=== PATIENT | female | born 1965 | race Caucasian/White ===

== ENCOUNTER → 2016-09-08 09:11 | Outpatient (CLI) | payer BC ==
[2011-02-08 12:56] VITALS: BMI 29.9
== END | disposition home or self-care (01) ==
LOC: D.MRI 09:11
DX: M25.511 Pain in right shoulder (principal)

== ENCOUNTER → 2017-11-14 10:29 | Outpatient (CLI) | payer BC ==
[2011-02-08 12:56] VITALS: BMI 29.9
== END | disposition home or self-care (01) ==
LOC: D.MAMMO 10-18 15:00
DX: Z12.31 Encounter for screening mammogram for malignant neoplasm of breast (principal)

== ENCOUNTER → 2017-12-19 08:00 | Outpatient (CLI) | payer BC ==
[2011-02-08 12:56] VITALS: BMI 29.9
== END | disposition home or self-care (01) ==
LOC: D.MRI 08:00
DX: M25.562 Pain in left knee (principal)

== ENCOUNTER → 2018-02-21 18:13 | Outpatient (CLI) | payer BC ==
[2011-02-08 12:56] VITALS: BMI 29.9
== END | disposition home or self-care (01) ==
LOC: D.MRI 18:13
DX: M25.561 Pain in right knee (principal)

== ENCOUNTER → 2018-07-24 13:31 | Outpatient (CLI) | payer BC ==
[2011-02-08 12:56] VITALS: BMI 29.9
[~2018-07-24 13:31] MED LIST: AMBIEN10 MG PO; ATIVAN1 MG PO; CYMBALTA60 MG PO; HYDROCODON-ACE1 EA10 PO; PRINIVIL20 MG PO; TOPROL XL50 MG PO; VITAMIN E100 UNIT PO; WELCHOL625 MG PO; ZYRTEC10 MG PO; [UNRECOGNIZED DRUG - OTHER] PO
== END | disposition home or self-care (01) ==
LOC: D.LABREF 13:31
DX: M17.11 Unilateral primary osteoarthritis, right knee (principal); Z11.8 Encounter for screening for other infectious and parasitic diseases

== ENCOUNTER 2018-08-02 09:15 | Inpatient (IN) | payer BC ==
[~2018-08-02] VITALS: Ht 167.6 cm; Wt 90.9 kg
[2018-08-11] MEDS ORDERED: TOPROL XL50 MG PO (15:06)
[2018-08-11] MEDS ORDERED: ATIVAN1 MG PO (15:07)
[2018-08-11] MEDS ORDERED: CYMBALTA60 MG PO (15:07)
[2018-08-11] MEDS ORDERED: AMBIEN10 MG PO (15:07)
[2018-08-11] MEDS ORDERED: PRINIVIL20 MG PO (15:07)
[2018-08-11] MEDS ORDERED: WELCHOL625 MG PO (15:08)
[2018-08-11] MEDS ORDERED: HYDROCODON-ACE1 EA10 PO (15:09)
[2018-08-14] MEDS ORDERED: ZYRTEC10 MG PO (10:10)
[2018-08-14] MEDS ORDERED: [UNRECOGNIZED DRUG - OTHER] PO (10:11)
[2018-08-14] MEDS ORDERED: VITAMIN E100 UNIT PO (10:11)
[2018-08-14 10:54] LABS: BASOPHILS 0.6 % (0-2); EOSINOPHILS 1.5 % (0-7); IMMATURE GRANULOCYTES 0.4 % (0-5); LYMPHOCYTES 31.9 % (15-50); MCH 29.8 pg (26.0-34.0); MCHC 33.3 g/dL (31.0-37.0); MCV 89.4 fL (80.0-100.0); MEAN PLATELET VOLUME 8.5 fL (7.4-10.4); MONOCYTES 9.7 % (2-11); NEUTROPHILS 55.9 % (40-80); PLATELET COUNT 324 10x3/uL (130-400); RBC 4.36 10x6/uL (4.00-5.40); RDW 12.7 % (11.5-14.5); WBC 5.2 10x3/uL (4.8-10.8)
[2018-08-14 11:01] LABS: CALC OSMOLALITY 276 mosm/kg (275-300); CALCIUM 9.4 mg/dL (8.5-10.1); CHLORIDE - SERUM 100 mmol/L (98-107); CREATININE - SERUM 0.7 mg/dL (0.6-1.3); GLUCOSE 93 mg/dL (74-106); POTASSIUM - SERUM 3.5 mmol/L (3.5-5.1); SODIUM 139 mmol/L (136-145); UREA NITROGEN 10 mg/dL (7-18); eGFR NON AFRICAN AMERICAN > 90 mL/min (90-120)
[2018-08-14 11:31] LABS: APTT 28.6 SECONDS (22.8-39.4); INR 0.96 (0.85-1.17); PROTIME 12.3 SECONDS (11.6-15.0)
[2018-08-14 11:37] LABS: APPEARANCE CLEAR (CLEAR); BILIRUBIN NEGATIVE (NEGATIVE); COLOR STRAW (YELLOW); GLUCOSE NEGATIVE (NEGATIVE); KETONE NEGATIVE (NEGATIVE); NITRITE NEGATIVE (NEGATIVE); PROTEIN NEGATIVE (NEGATIVE); SPECIFIC GRAVITY 1.005 (1.005-1.020); UROBILINOGEN NORMAL (NORMAL)
[2018-08-14 11:39] LABS: EPITHELIAL CELLS 0-5 /hpf (0-5); RED CELLS - URINE 0-5 /hpf (0-5); WHITE CELLS - URINE 0-5 /hpf (0-5)
[2018-08-14 11:40] LABS: AMORPHOUS SEDIMENT <1+ /lpf (NONE SEEN); BACTERIA FEW /hpf (NONE SEEN); MUCUS <1+ /lpf (NONE SEEN)
[2018-08-18] VITALS (7 sets, daily range): BP systolic 126–144; BP diastolic 75–84; Ht 167.6 cm; Wt 90.9 kg
--- NOTE | 2018-08-18 13:37 | OP ---
PATIENT NAME: PEGGY SHAY MEDICAL RECORD: [id number] :67 LOCATION:D.MS [id number] ADMISSION DATE:08/18/18 SURGEON: STEVEN GIBSON DO DATE OF OPERATION: 08/18/2018 PREOPERATIVE DIAGNOSIS: Right total knee arthroplasty. PREOPERATIVE DIAGNOSIS: Severe right knee osteoarthritis. POSTOPERATIVE DIAGNOSIS: Severe right knee osteoarthritis. INDICATIONS: Ms. Shay is a 53-year-old female that has been having right knee pain for some time years even. She has tried all manner of conservative treatment including injections and physical therapy and she is to a point where it is affecting her activities of daily living. She does have a known ACL tear as well in that right knee and is unstable. Due to that combination and the fact she has failed all conservative measures, she elected to do a total knee arthroplasty. She is aware of the risks and benefits of the procedure including infection, bleeding, damage to nerves and vessels, need for further surgery, fracture, blood clots, and even . She is aware of that and signed the consent. SURGEON: Steven Gibson DO DESCRIPTION OF PROCEDURE: The patient was taken to the operative suite after receiving a block by anesthesia, laid in the supine position, given general anesthetic and LMA was placed. She was given 2 grams of Ancef after a test dose, which had no reaction due to PENICILLIN ALLERGY and 80 mg of gentamicin. The right lower extremity was then prepped and draped in sterile fashion. A timeout was performed, everyone was in agreement with the correct side, site, patient and procedure. Once that was completed, the incision was marked out on the anterior knee. Incision was wrapped in Ioban and a #10 blade scalpel was used to dissect down to the capsule. Capsule was peeled off medially and good exposure and then a fresh 10 blade was used to do a medial parapatellar approach to the capsulotomy and any bleeders were coagulated at that time with the Aquamantys. Once that was completed, the part of the fat pad was removed and the patella was everted and milled down to fit the prosthesis and measured to be a 31 for the patella. The knee was then flexed up and the canal of the femur was entered with a drill and then irrigated and the distal femur cutting guide was put on and the distal femur was cut. Once the distal femur was cut, a 10-mm resected with 5 degrees of valgus. This was removed and then the tibia was exposed and 4 mm taken off the low side of the medial side. This bone was removed as well and then the menisci were removed. The knee was brought into extension and a lamina teacher of the deaf/hard of hearing was used to remove any other bone fragments or menisci that were left and medial and lateral burns as well as the posterior capsule was coagulated with the Aquamantys. Extension block was then put in. It fit very well and had good medial and lateral stability. The knee was flexed up at that time and the femur was measured to be just 6.25 for right femur. The cutting block was then put on and the john wing was put on to ensure there was no notching and it was not. This was pinned into place and the 4-in-1 cutting block was used to cut the femur, anterior, posterior and chamfer cuts. This bone was removed and then the trial was placed. The tibial tray was floated in a range and rotation was marked. Once rotation was marked, this was removed. The patella was drilled for the implant. The poly tray had been removed as well as the tibial tray and then the knee was flexed up and the femur was drilled for OPERATIVE REPORT [id number] PEGGY SHAY the lug holes. This was removed and the tibia was exposed and sized to be 71. It was drilled and punched at that time and then extra holes were put in the tibia for the cement mantle. The cement was then mixed, placed on the tibial implant as well as the patellar implant and then into the tibia and the tibial tray was impacted into place. Excess cement was removed. The femur was then put on and impacted into place. A 10 poly was put in between them and brought into extension and then the patella drill holes were cleaned out with a curette and irrigated and the patella was put in with cement in the holes and around the patella and squeezed and excess cement was removed. This was held in place while the cement dried and the knee was thoroughly irrigated at that time. Any bleeders were coagulated with Aquamantys. Once this was done, the 10 was trialed and seemed to fit very well, ended up putting a 10 deep dish or anterior stabilized E-poly in the patient and it had very good stability both in extension and in flexion. The knee was then irrigated again and Surgicel beads were placed in the gutters as well as tobramycin and vancomycin powder. The knee was then flexed up and the capsule was closed with #2 Ethibond in a ecxqir-yp-uglks fashion. Once that was completed, the capsule was irrigated and more vancomycin, tobramycin powder was placed on top of the capsule and the skin was closed with 2-0 Vicryl in inverted interrupted fashion and a ZipLine was placed on the knee. Adaptic, 4 x 4's, ABD, Webril, Zack wrap and then NATALIE hose stockinette was placed up to the knee. The patient was awakened and taken to recovery in stable condition. BLOOD LOSS: 200 mL. COMPLICATIONS: None. TRANSINT:[id number] Voice Confirmation ID: [id number] DOCUMENT ID: [id number] STEVEN GIBSON DO at 1337 CC: [id number] DICTATION DATE: 08/18/18 1147 PUPPET ENGINEER: 08/18/18 1253 ADM IN [place] [address] [place] [address]
[2018-08-18 15:24] LABS: BASOPHILS 0.2 % (0-2); EOSINOPHILS 0 % (0-7); HEMATOCRIT 37.3 % (36.0-48.0); HEMOGLOBIN 12.4 g/dL (12-16); IMMATURE GRANULOCYTES 0.6 % (0-5); MCHC 33.2 g/dL (31.0-37.0); MCV 90.1 fL (80.0-100.0); MEAN PLATELET VOLUME 8.4 fL (7.4-10.4); MONOCYTES 1.1 % (2-11); NEUTROPHILS 94.1 % (40-80); PLATELET COUNT 343 10x3/uL (130-400); RBC 4.14 10x6/uL (4.00-5.40); RDW 12.9 % (11.5-14.5)
--- NOTE | 2018-08-18 15:28 | MORECARE ---
CASE MANAGEMENT DISCHARGE SUMMARY PATIENT: PEGGY BUCHANAN UNIT: [id number] ADM DATE: 08/18/18 AGE: 53 : 67 SEX: F ROOM/BED: D.2213 AUTHOR: TRESSA MITCHELL PHYSICIAN: REFERRING PHYSICIAN: ANITA GIBSON DO DATE OF SERVICE: 08/18/18 Discharge Plan Patient Name: PEGGY BUCHANAN Facility: [facility]:[place] : 1965 Planned Disposition: Home Anticipated Discharge Date: Discharge Date: Expected LOS: Initial Reviewer: [email or web address] Initial Review Date: 08/18/2018 Generated: 08/18/18 4:28 pm DCPIA - Discharge Planning Initial Assessment Updated by [email or web address]: Malini Darnell on 08/18/18 3:27 pm * Is the patient Alert and Oriented? Yes * How many steps to enter\exit or inside your home? * [facility] * Pharmacy [facility] * Preadmission Environment Home with Family * ADLs Independent * Equipment Bedside Commode Elevated Toliet Seat Rolling Walker Shower Chair Walker * Other Equipment CPM ICE MACHINE * List name and contact numbers for known caregivers / representatives who currently or will assist patient after discharge: BRENDA CANCHOLA [phone] * Verbal permission to speak to the caregivers and representatives has been obtained from the patient. Yes * Community resources currently utilized None * Additional services required to return to the preadmission environment? Yes * Can the patient safely return to the preadmission environment? Yes * Has this patient been hospitalized within the prior 30 days at any hospital? No External Providers External Provider: Ashley PT Next Contact Date: Service Request Date: Service Type: Resolution: Reviewer: Comments: Patient Name: PEGGY BUCHANAN Page 37047 at 1528 All edits/amendments must be made on the electronic document DICTATION DATE: 08/18/181526 BENEFITS CONSULTING ANALYST: BILL 08/18/18 152 RPT#: [id number] DC DATE: STATUS: ADM IN [facility] [address] [place] [address] END OF REPORT
--- NOTE | 2018-08-18 15:38 | MORECARE ---
CASE MANAGEMENT DISCHARGE SUMMARY PATIENT: PEGGY BUCHANAN UNIT: [id number] ADM DATE: 08/18/18 AGE: 53 : 67 SEX: F ROOM/BED: D.2213 AUTHOR: TRESSA MITCHELL PHYSICIAN: REFERRING PHYSICIAN: ANITA GIBSON DO DATE OF SERVICE: 08/18/18 Discharge Plan Patient Name: PEGGY BUCHANAN Facility: [facility]:[place] : 1965 Planned Disposition: Home Anticipated Discharge Date: Discharge Date: Expected LOS: Initial Reviewer: [email or web address] Initial Review Date: 08/18/2018 Generated: 08/18/18 4:37 pm Comments DCP- Discharge Planning Updated by [email or web address]: Malini Darnell on 08/18/18 2:[address] Patient Name: PEGGY BUCHANAN Admission Status: Elective Accout number: [id number] Admission Date: 08-18-2018 : 1965 Admission Diagnosis: Attending: ANITA GIBSON Current LOS: 1 Anticipated DC Date: Planned Disposition: Home Primary Insurance: [employer] [facility] Discharge Planning Comments: CM met with discharge planning needs. Patient lives independently at home with her she plans to return there at [place]. Her will be the one to drive her home. She has 2 steps in her porch. She has a walker, cpm, ice machine and BSC already that was set up by Dr Gibson's office. She would like to use [facility]. I spoke with Rebekah at [facility] and made her appointment for TuesdayAug 22 @ 9:00am. Order faxed and copy placed in chart. CM will continue to follow and assist with DC planning as needed Bias Binding Cutter: Malini Darnell DCPIA - Discharge Planning Initial Assessment Updated by [email or web address]: Malini Darnell on 08/18/18 3:27 pm * Is the patient Alert and Oriented? Yes * How many steps to enter\exit or inside your home? * [facility]CP [facility] * Pharmacy [facility] * Preadmission Environment Home with Family * ADLs Independent * Equipment Bedside Commode Elevated Tol[place] Seat Rolling Walker Shower Chair Walker * Other Equipment CPM ICE MACHINE * List name and contact numbers for known caregivers / representatives who currently or will assist patient after discharge: BRENDA CANCHOLA [phone] * Verbal permission to speak to the caregivers and representatives has been obtained from the patient. Yes * Community resources currently utilized None * Additional services required to return to the preadmission environment? Yes * Can the patient safely return to the preadmission environment? Yes * Has this patient been hospitalized within the prior 30 days at any hospital? No Last DP export: 08/18/18 2:28 pm Patient Name: PEGGY BUCHANAN Page 31156 at 1538 All edits/amendments must be made on the electronic document DICTATION DATE: 08/18/181536 CHIP MUCKER: BILL 08/18/181536 RPT#: [id number] DC DATE: STATUS: ADM IN [facility] [address] [place] [address] END OF REPORT
[2018-08-18 15:39] LABS: ALBUMIN 3.5 g/dL (3.4-5.0); BILIRUBIN - TOTAL 0.22 mg/dL (0.2-1.3); CALCIUM 8.7 mg/dL (8.5-10.1); CARBON DIOXIDE 26.1 mmol/L (21.0-32.0); CREATININE - SERUM 0.9 mg/dL (0.6-1.3); POTASSIUM - SERUM 4.1 mmol/L (3.5-5.1); PROTEIN - SERUM 7.2 g/dL (6.4-8.2)
[2018-08-19 04:00] VITALS: BP 118/69
[2018-08-19 06:19] LABS: BASOPHILS 0 % (0-2); EOSINOPHILS 0 % (0-7); HEMATOCRIT 37.3 % (36.0-48.0); HEMOGLOBIN 12.1 g/dL (12-16); IMMATURE GRANULOCYTES 0.4 % (0-5); LYMPHOCYTES 6.2 % (15-50); MCH 29.3 pg (26.0-34.0); MCHC 32.4 g/dL (31.0-37.0); MCV 90.3 fL (80.0-100.0); MEAN PLATELET VOLUME 8.6 fL (7.4-10.4); MONOCYTES 5.5 % (2-11); NEUTROPHILS 87.9 % (40-80); PLATELET COUNT 376 10x3/uL (130-400); RBC 4.13 10x6/uL (4.00-5.40); WBC 12.8 10x3/uL (4.8-10.8)
[2018-08-19 06:58] LABS: ALBUMIN 3.4 g/dL (3.4-5.0); ALKALINE PHOSPHATASE 64 U/L (46-116); ALT (SGPT) 38 U/L (10-68); CALC OSMOLALITY 279 mosm/kg (275-300); CALCIUM 8.9 mg/dL (8.5-10.1); CARBON DIOXIDE 24.5 mmol/L (21.0-32.0); CHLORIDE - SERUM 104 mmol/L (98-107); CREATININE - SERUM 0.8 mg/dL (0.6-1.3); GLUCOSE 142 mg/dL (74-106); POTASSIUM - SERUM 4.3 mmol/L (3.5-5.1); PROTEIN - SERUM 7.1 g/dL (6.4-8.2); SODIUM 140 mmol/L (136-145); UREA NITROGEN 10 mg/dL (7-18); eGFR NON AFRICAN AMERICAN 80 mL/min (90-120)
[2018-08-19 08:39] VITALS: BP 129/83
[2018-08-19 12:00] VITALS: BP 117/72
[2018-08-19 16:00] VITALS: BP 112/64
[2018-08-19 20:00] VITALS: BP 112/64
[2018-08-20] VITALS: BP 106/61
[2018-08-20 04:00] VITALS: BP 108/62
[2018-08-20 05:54] LABS: BASOPHILS 0.1 % (0-2); EOSINOPHILS 0 % (0-7); HEMATOCRIT 34.4 % (36.0-48.0); IMMATURE GRANULOCYTES 0.3 % (0-5); LYMPHOCYTES 15.9 % (15-50); MCH 29.3 pg (26.0-34.0); MCV 91.5 fL (80.0-100.0); MEAN PLATELET VOLUME 8.8 fL (7.4-10.4); NEUTROPHILS 74.7 % (40-80); PLATELET COUNT 343 10x3/uL (130-400); RBC 3.76 10x6/uL (4.00-5.40); RDW 13.4 % (11.5-14.5); WBC 11.7 10x3/uL (4.8-10.8)
[2018-08-20 06:36] LABS: ALBUMIN 3.1 g/dL (3.4-5.0); ALKALINE PHOSPHATASE 68 U/L (46-116); ALT (SGPT) 34 U/L (10-68); BILIRUBIN - TOTAL 0.24 mg/dL (0.2-1.3); CALC OSMOLALITY 282 mosm/kg (275-300); CALCIUM 8.7 mg/dL (8.5-10.1); CARBON DIOXIDE 27.5 mmol/L (21.0-32.0); CHLORIDE - SERUM 104 mmol/L (98-107); CREATININE - SERUM 0.8 mg/dL (0.6-1.3); GLUCOSE 114 mg/dL (74-106); POTASSIUM - SERUM 4.1 mmol/L (3.5-5.1); PROTEIN - SERUM 6.8 g/dL (6.4-8.2); SODIUM 141 mmol/L (136-145); eGFR NON AFRICAN AMERICAN 80 mL/min (90-120)
[2018-08-20 06:37] LABS: UREA NITROGEN 16 mg/dL (7-18)
[2018-08-20 07:55] VITALS: BP 163/80
[2018-08-20 13:00] VITALS: BP 129/76
[2018-08-20 16:00] VITALS: BP 99/57
[2018-08-20 20:00] VITALS: BP 109/54
[2018-08-21] VITALS: BP 102/55
[2018-08-21 04:00] VITALS: BP 116/71
[2018-08-21 04:48] LABS: BASOPHILS 0.6 % (0-2); EOSINOPHILS 0.4 % (0-7); HEMOGLOBIN 10.2 g/dL (12-16); IMMATURE GRANULOCYTES 1.1 % (0-5); LYMPHOCYTES 31.3 % (15-50); MCH 29.1 pg (26.0-34.0); MCHC 31.9 g/dL (31.0-37.0); MCV 91.4 fL (80.0-100.0); MEAN PLATELET VOLUME 8.8 fL (7.4-10.4); MONOCYTES 11.7 % (2-11); NEUTROPHILS 54.9 % (40-80); PLATELET COUNT 311 10x3/uL (130-400); RDW 13.5 % (11.5-14.5)
[2018-08-21 04:54] LABS: WBC 7.9 10x3/uL (4.8-10.8)
[2018-08-21 05:08] LABS: ALBUMIN 2.7 g/dL (3.4-5.0); ALKALINE PHOSPHATASE 75 U/L (46-116); ALT (SGPT) 30 U/L (10-68); BILIRUBIN - TOTAL 0.15 mg/dL (0.2-1.3); CALC OSMOLALITY 281 mosm/kg (275-300); CALCIUM 8.5 mg/dL (8.5-10.1); CARBON DIOXIDE 29.3 mmol/L (21.0-32.0); CHLORIDE - SERUM 107 mmol/L (98-107); CREATININE - SERUM 0.7 mg/dL (0.6-1.3); GLUCOSE 99 mg/dL (74-106); POTASSIUM - SERUM 3.9 mmol/L (3.5-5.1); SODIUM 141 mmol/L (136-145); UREA NITROGEN 16 mg/dL (7-18); eGFR NON AFRICAN AMERICAN > 90 mL/min (90-120)
[2018-08-21] MEDS ORDERED: ELIQUIS2.5 MG PO (07:35)
[2018-08-21] MEDS ORDERED: VISTARIL50 MG PO (07:35)
[2018-08-21] MEDS ORDERED: KEFLEX500 MG PO (07:36)
[2018-08-21] MEDS ORDERED: OXYCODONE HCL5 M1 PO (07:36)
[2018-08-21 08:04] VITALS: BP 125/59
--- NOTE | 2018-08-21 09:58 | MORECARE ---
CASE MANAGEMENT DISCHARGE SUMMARY PATIENT: PEGGY BUCHANAN UNIT: [id number] ADM DATE: 08/18/18 AGE: 53 : 67 SEX: F ROOM/BED: D.2213 AUTHOR: TRESSA MITCHELL PHYSICIAN: REFERRING PHYSICIAN: ANITA GIBSON DO DATE OF SERVICE: 08/21/18 Discharge Plan Patient Name: PEGGY BUCHANAN Facility: [facility]:[place] : 1965 Planned Disposition: Home Anticipated Discharge Date: Discharge Date: Expected LOS: Initial Reviewer: [email or web address] Initial Review Date: 08/18/2018 Generated: 08/21/18 10:58 am Comments DCP- Discharge Planning Updated by [email or web address]: Malini Darnell on 08/21/18 8:[address] Patient Name: PEGGY BUCHANAN Encounter No: [id number] : 1965 Primary Insurance: [employer] Anticipated DC Date: Planned Disposition: Home External Planned Provider: : DCP follow-up note: Patient and family in agreement with discharge plan. No changes to plan. Case management will follow and assist as needed. Malini Darnell DCP- Discharge Planning Updated by [email or web address]: Malini Darnell on 08/18/18 2:[address] Patient Name: PEGGY BUCHANAN Admission Status: Elective Accout number: [id number] Admission Date: 08-18-2018 : 1965 Admission Diagnosis: Attending: ANITA GIBSON Current LOS: 1 Anticipated DC Date: Planned Disposition: Home Primary Insurance: [employer] Discharge Planning Comments: CM met with discharge planning needs. Patient lives independently at home with her she plans to return there at [place]. Her will be the one to drive her home. She has 2 steps in her porch. She has a walker, cpm, ice machine and BSC already that was set up by Dr Gibson's office. She would like to use [facility]. I spoke with Rebekah at [facility] and made her appointment for TuesdayAug 22 @ 9:00am. Order faxed and copy placed in chart. CM will continue to follow and assist with DC planning as needed Cane Feeder: Malini Darnell DCPIA - Discharge Planning Initial Assessment Updated by [email or web address]: Malini Darnell on 08/18/18 3:27 pm * Is the patient Alert and Oriented? Yes * How many steps to enter\exit or inside your home? * [facility] * Pharmacy [facility] * Preadmission Environment Home with Family * ADLs Independent * Equipment Bedside Commode Elevated Toliet Seat Rolling Walker Shower Chair Walker * Other Equipment CPM ICE MACHINE * List name and contact numbers for known caregivers / representatives who currently or will assist patient after discharge: BRENDA CANCHOLA [phone] * Verbal permission to speak to the caregivers and representatives has been obtained from the patient. Yes * Community resources currently utilized None * Additional services required to return to the preadmission environment? Yes * Can the patient safely return to the preadmission environment? Yes * Has this patient been hospitalized within the prior 30 days at any hospital? No Last DP export: 08/18/18 2:38 pm Patient Name: PEGGY BUCHANAN Page 23691 at 0958 All edits/amendments must be made on the electronic document DICTATION DATE: 08/21/18957 FOOT GATHERER: BILL 08/21/18957 RPT#: [id number] DC DATE: STATUS: ADM IN [facility] [address] [place] [address] END OF REPORT
--- NOTE | 2018-08-21 11:21 | MORECARE ---
CASE MANAGEMENT DISCHARGE SUMMARY PATIENT: PEGGY BUCHANAN UNIT: [id number] ADM DATE: 08/18/18 AGE: 53 : 67 SEX: F ROOM/BED: D.2213 AUTHOR: TRESSA MITCHELL PHYSICIAN: REFERRING PHYSICIAN: ANITA GIBSON DO DATE OF SERVICE: 08/21/18 Discharge Plan Patient Name: PEGGY BUCHANAN Facility: [facility]:[place] : 1965 Planned Disposition: Home Anticipated Discharge Date: Discharge Date: 08/21/2018 Expected LOS: 0 Initial Reviewer: [email or web address] Initial Review Date: 08/18/2018 Generated: 08/21/18 12:21 pm Comments DCP- Discharge Planning Updated by [email or web address]: Malini Darnell on 08/21/18 8:[address] Patient Name: PEGGY BUCHANAN Encounter No: [id number] : 1965 Primary Insurance: [employer] Anticipated DC Date: Planned Disposition: Home External Planned Provider: : DCP follow-up note: Patient and family in agreement with discharge plan. No changes to plan. Case management will follow and assist as needed. Malini Darnell DCP- Discharge Planning Updated by [email or web address]: Malini Darnell on 08/18/18 2:[address] Patient Name: PEGGY BUCHANAN Admission Status: Elective Accout number: [id number] Admission Date: 08-18-2018 : 1965 Admission Diagnosis: Attending: ANITA GIBSON Current LOS: 1 Anticipated DC Date: Planned Disposition: Home Primary Insurance: [employer] Discharge Planning Comments: CM met with discharge planning needs. Patient lives independently at home with her she plans to return there at [place]. Her will be the one to drive her home. She has 2 steps in her porch. She has a walker, cpm, ice machine and BSC already that was set up by Dr Gibson's office. She would like to use [facility]. I spoke with Rebekah at [facility] and made her appointment for TuesdayAug 22 @ 9:00am. Order faxed and copy placed in chart. CM will continue to follow and assist with DC planning as needed Railroad Detective: Malini Darnell DCPIA - Discharge Planning Initial Assessment Updated by [email or web address]: Malini Darnell on 08/18/18 3:27 pm * Is the patient Alert and Oriented? Yes * How many steps to enter\exit or inside your home? * PCP [facility] * Pharmacy [facility] * Preadmission Environment Home with Family * ADLs Independent * Equipment Bedside Commode Elevated Toliet Seat Rolling Walker Shower Chair Walker * Other Equipment CPM ICE MACHINE * List name and contact numbers for known caregivers / representatives who currently or will assist patient after discharge: BRENDA CANCHOLA [phone] * Verbal permission to speak to the caregivers and representatives has been obtained from the patient. Yes * Community resources currently utilized None * Additional services required to return to the preadmission environment? Yes * Can the patient safely return to the preadmission environment? Yes * Has this patient been hospitalized within the prior 30 days at any hospital? No Last DP export: 08/21/18 8:58 a Patient Name: PEGGY BUCHANAN Page 91991 at 1121 All edits/amendments must be made on the electronic document DICTATION DATE: 08/21/18 112 INTELLIGENCE ENGINEER: BILL 08/21/181120 RPT#: [id number] DC DATE:08/21/18 STATUS: DIS IN [facility] [address] [place] [address] END OF REPORT
[2018-08-22] MEDS ORDERED: XOFLUZA40 MG PO (10:20)
== END 2018-08-21 10:48 | disposition home or self-care (01) | DRG 470 ==
LOC: D.SDCHOLD 08-18 06:50 → D.MS 08-18 12:19 → D.SDCHOLD 08-18 12:30 → D.MS 08-21 10:48
PROVIDERS: Family Medicine; ADMIT Orthopaedic Surgery
PROC: 0SRC0J9 Replacement of Right Knee Joint with Synthetic Substitute, Cemented, Open Approach (ICD-10-PCS; principal; 2018-08-18 09:00)
DX: M17.11 Unilateral primary osteoarthritis, right knee (principal); D62 Acute posthemorrhagic anemia; I10 Essential (primary) hypertension; I49.9 Cardiac arrhythmia, unspecified; G47.00 Insomnia, unspecified; M54.9 Dorsalgia, unspecified; G89.29 Other chronic pain

== ENCOUNTER 2018-08-22 08:29 | Emergency (ER) | payer BC ==
[~2018-08-22] VITALS: Ht 167.6 cm; Wt 90.9 kg
[~2018-08-22 08:29] MED LIST changes: +ELIQUIS2.5 MG PO; +KEFLEX500 MG PO; +OXYCODONE HCL5 M1 PO; +VISTARIL50 MG PO
[2018-08-22 08:30] VITALS: Ht 167.6 cm; Wt 90.9 kg
[2018-08-22 09:29] LABS: APTT 29.8 SECONDS (22.8-39.4); INR 1.12 (0.85-1.17); PROTIME 13.9 SECONDS (11.6-15.0)
[2018-08-22 09:35] LABS: ALBUMIN 3.1 g/dL (3.4-5.0); ALKALINE PHOSPHATASE 88 U/L (46-116); BILIRUBIN - TOTAL 0.57 mg/dL (0.2-1.3); CALC OSMOLALITY 270 mosm/kg (275-300); CALCIUM 8.7 mg/dL (8.5-10.1); CARBON DIOXIDE 26.8 mmol/L (21.0-32.0); CHLORIDE - SERUM 98 mmol/L (98-107); GLUCOSE 99 mg/dL (74-106); PROTEIN - SERUM 6.7 g/dL (6.4-8.2); SODIUM 135 mmol/L (136-145); UREA NITROGEN 14 mg/dL (7-18)
[2018-08-22 09:38] LABS: ALT (SGPT) 46 U/L (10-68); CREATININE - SERUM 0.9 mg/dL (0.6-1.3); POTASSIUM - SERUM 3.3 mmol/L (3.5-5.1); eGFR NON AFRICAN AMERICAN 70 mL/min (90-120)
[2018-08-22 09:53] LABS: BASOPHILS 0.4 % (0-2); CREATINE KINASE 69 UL (21-215); EOSINOPHILS 0.4 % (0-7); HEMATOCRIT 32.7 % (36.0-48.0); IMMATURE GRANULOCYTES 1.9 % (0-5); LYMPHOCYTES 8.2 % (15-50); MCH 29.6 pg (26.0-34.0); MCHC 33.6 g/dL (31.0-37.0); MEAN PLATELET VOLUME 8.5 fL (7.4-10.4); NEUTROPHILS 80.1 % (40-80); PLATELET COUNT 303 10x3/uL (130-400); RBC 3.71 10x6/uL (4.00-5.40); RDW 12.9 % (11.5-14.5); TROPONIN-I < 0.017 ng/mL (0.000-0.060); WBC 8.4 10x3/uL (4.8-10.8)
[2018-08-22 09:58] LABS: MCV 88.1 fL (80.0-100.0)
[2018-08-22] MEDS ORDERED: XOFLUZA40 MG PO (10:20)
[2018-08-22 11:00] VITALS: BP 121/74
== END 2018-08-22 11:00 | disposition home or self-care (01) ==
LOC: D.ER 08:29
PROVIDERS: Family Medicine
DX: J09.X2 Influenza due to identified novel influenza A virus with other respiratory manifestations (principal); R53.81 Other malaise; R53.83 Other fatigue; R50.9 Fever, unspecified; I10 Essential (primary) hypertension

== ENCOUNTER → 2018-12-28 14:18 | Outpatient (CLI) | payer BC ==
[2018-08-22 08:30] VITALS: BMI 32.3
[~2018-12-28 14:18] MED LIST changes: +XOFLUZA40 MG PO
== END | disposition home or self-care (01) ==
LOC: D.LABREF 14:18
PROVIDERS: ATTEND Orthopaedic Surgery
DX: M17.12 Unilateral primary osteoarthritis, left knee (principal); Z11.8 Encounter for screening for other infectious and parasitic diseases

== ENCOUNTER 2019-01-10 09:52 | Inpatient (IN) | payer BC ==
[~2019-01-10] VITALS: Ht 167.6 cm; Wt 90.9 kg
[2019-02-12 09:43] LABS: BASOPHILS 1.3 % (0-2); CALC OSMOLALITY 276 mosm/kg (275-300); CALCIUM 9.5 mg/dL (8.5-10.1); CARBON DIOXIDE 28.6 mmol/L (21.0-32.0); CHLORIDE - SERUM 103 mmol/L (98-107); CREATININE - SERUM 0.8 mg/dL (0.6-1.3); EOSINOPHILS 3.6 % (0-7); GLUCOSE 102 mg/dL (74-106); HEMATOCRIT 38.5 % (36.0-48.0); HEMOGLOBIN 12.8 g/dL (12-16); IMMATURE GRANULOCYTES 0.3 % (0-5); LYMPHOCYTES 29.7 % (15-50); MCH 29.3 pg (26.0-34.0); MCHC 33.2 g/dL (31.0-37.0); MCV 88.1 fL (80.0-100.0); MEAN PLATELET VOLUME 8.7 fL (7.4-10.4); MONOCYTES 13.3 % (2-11); NEUTROPHILS 51.8 % (40-80); PLATELET COUNT 338 10x3/uL (130-400); POTASSIUM - SERUM 3.9 mmol/L (3.5-5.1); RBC 4.37 10x6/uL (4.00-5.40); RDW 14.1 % (11.5-14.5); SODIUM 139 mmol/L (136-145); UREA NITROGEN 11 mg/dL (7-18); WBC 3.8 10x3/uL (4.8-10.8); eGFR NON AFRICAN AMERICAN 80 mL/min (90-120)
[2019-02-12 10:17] LABS: APPEARANCE CLEAR (CLEAR); COLOR YELLOW (YELLOW)
[2019-02-12 10:18] LABS: BACTERIA FEW /hpf (NONE SEEN); BILIRUBIN NEGATIVE (NEGATIVE); EPITHELIAL CELLS 0-5 /hpf (0-5); GLUCOSE NEGATIVE (NEGATIVE); KETONE NEGATIVE (NEGATIVE); MUCUS <1+ /lpf (NONE SEEN); NITRITE NEGATIVE (NEGATIVE); PROTEIN NEGATIVE (NEGATIVE); UROBILINOGEN NORMAL (NORMAL); WHITE CELLS - URINE 0-5 /hpf (0-5)
[2019-02-12 10:20] LABS: PROTIME 12.7 SECONDS (11.6-15.0)
[2019-02-12 10:22] LABS: INR 0.96 (0.85-1.17)
[2019-02-13 06:17] VITALS: BP 125/77; BMI 32.3
--- NOTE | 2019-02-13 07:41 | NUR ---
PLASMA BLADE SETTINGS 6 AND 8 ELECTRODE PADE RIGHT HIP LOT# [id number] DATE: 07/26/20
[2019-02-13 09:42] VITALS: BP 131/48
--- NOTE | 2019-02-13 09:46 | NUR ---
STARTED PT ON 3L O2 PER NC. O2 SAT KEPT DROPPING, WHEN SHE WOULD DOZE OFF. WILL MONITOR AND TAPER TOLERATED.
[2019-02-13 10:06] LABS: BASOPHILS 0.4 % (0-2); EOSINOPHILS 0.6 % (0-7); HEMATOCRIT 34.6 % (36.0-48.0); HEMOGLOBIN 11.3 g/dL (12-16); IMMATURE GRANULOCYTES 0.4 % (0-5); LYMPHOCYTES 7.8 % (15-50); MCH 28.7 pg (26.0-34.0); MCHC 32.7 g/dL (31.0-37.0); MCV 87.8 fL (80.0-100.0); MEAN PLATELET VOLUME 8.3 fL (7.4-10.4); MONOCYTES 4.4 % (2-11); NEUTROPHILS 86.4 % (40-80); RBC 3.94 10x6/uL (4.00-5.40); RDW 13.9 % (11.5-14.5)
[2019-02-13 10:13] LABS: PLATELET COUNT 264 10x3/uL (130-400); WBC 8.5 10x3/uL (4.8-10.8)
[2019-02-13 10:21] LABS: ALBUMIN 3.5 g/dL (3.4-5.0); ANION GAP 6.4 mmol/L (8-16); BILIRUBIN - TOTAL 0.25 mg/dL (0.2-1.3); CARBON DIOXIDE 28.6 mmol/L (21.0-32.0); CREATININE - SERUM 0.9 mg/dL (0.6-1.3); PROTEIN - SERUM 6.7 g/dL (6.4-8.2)
[2019-02-13 11:54] VITALS: BP 109/61
[2019-02-13 15:34] VITALS: Ht 167.6 cm; Wt 90.9 kg
[2019-02-13 15:45] VITALS: BP 91/47
--- NOTE | 2019-02-13 19:40 | NUR ---
LYING IN BED. ALERT AND ORIENTED X4. RESP EVEN AND NONLABORED. O2 @ 2L/NC. AT BEDSIDE. RATES PAIN IN LT KNEE 4. CPM ON AT THIS TIME. SCD NOTED TO RLE. NTAALIE TO LLE. DRSG NOTED TO LT KNEE IS C/D/I WITH LETICIA WRAP IN USE. 1/2 NS @ 100 ML/HR INFUSING IN RT FOREARM WITHOUT DIFF. SR ELEVATED X2. CL IN REACH.
[2019-02-13 20:00] VITALS: BP 104/50
--- NOTE | 2019-02-13 21:10 | NUR ---
REQUESTED PAIN MED. B/P IS 104/50. MEDICATED WITH TORADOL ORDERED. TOPROL XL AND ATIVAN HELD PER NURSING JUDGEMENT AND PT AGREED. CL IN REACH.
[2019-02-14] VITALS: BP 93/53
--- NOTE | 2019-02-14 03:21 | NUR ---
HAS RESTED WELL SO FAR THIS SHIFT. NO DISTRESS. CL IN REACH.
[2019-02-14 05:07] LABS: BASOPHILS 0.1 % (0-2); EOSINOPHILS 0 % (0-7); HEMATOCRIT 33.8 % (36.0-48.0); HEMOGLOBIN 11.2 g/dL (12-16); IMMATURE GRANULOCYTES 0.2 % (0-5); LYMPHOCYTES 5.8 % (15-50); MCH 29.1 pg (26.0-34.0); MCHC 33.1 g/dL (31.0-37.0); MCV 87.8 fL (80.0-100.0); MEAN PLATELET VOLUME 8.9 fL (7.4-10.4); MONOCYTES 5.9 % (2-11); RBC 3.85 10x6/uL (4.00-5.40); RDW 14.1 % (11.5-14.5)
--- NOTE | 2019-02-14 05:20 | NUR ---
MEDICATED WITH TORADOL FOR C/O PAIN IN LT KNEE. CL IN REACH.
[2019-02-14 05:46] LABS: PLATELET COUNT 321 10x3/uL (130-400); WBC 12.5 10x3/uL (4.8-10.8)
[2019-02-14 05:55] LABS: ALBUMIN 3.3 g/dL (3.4-5.0); ALKALINE PHOSPHATASE 72 U/L (46-116); ALT (SGPT) 33 U/L (10-68); BILIRUBIN - TOTAL 0.27 mg/dL (0.2-1.3); CALC OSMOLALITY 280 mosm/kg (275-300); CALCIUM 8.8 mg/dL (8.5-10.1); CARBON DIOXIDE 25.7 mmol/L (21.0-32.0); CHLORIDE - SERUM 106 mmol/L (98-107); CREATININE - SERUM 0.8 mg/dL (0.6-1.3); GLUCOSE 120 mg/dL (74-106); PROTEIN - SERUM 6.8 g/dL (6.4-8.2); SODIUM 141 mmol/L (136-145); UREA NITROGEN 9 mg/dL (7-18); eGFR NON AFRICAN AMERICAN 80 mL/min (90-120)
[2019-02-14 06:24] LABS: POTASSIUM - SERUM 3.9 mmol/L (3.5-5.1)
--- NOTE | 2019-02-14 08:08 | NUR ---
PT RESTING IN BED. ON CPM. ASSISTED ON BEDPAN. AT BEDSIDE. NO S/S OF ACUTE DISTRESS. CL IN PLACE.
[2019-02-14 09:20] VITALS: BP 108/55
[2019-02-14 12:24] VITALS: BP 106/55
[2019-02-14 18:46] VITALS: BP 124/69
--- NOTE | 2019-02-14 19:00 | NUR ---
PT RESTING IN BED ON CPM. NO S/S OF ACUTE DISTRESS. CL IN PLACE.
--- NOTE | 2019-02-14 20:00 | NUR ---
RCVD PT. PT IN BED WATCHING TV, AT THE BEDSIDE. BREATHING EVEN AND NONLABORED, NO S/S OF DISTRESS. PT CURRENTLY ON CPM. DENIES ANY NEEDS AT THIS TIME. IV LOCATED TO RIGHT FOREARM, SALINE LOCKED. BED LOW, CALL LIGHT IN REACH, RAILS UP X 2. WILL CONTINUE TO MONITOR.
[2019-02-14 22:19] VITALS: BP 109/61
--- NOTE | 2019-02-15 01:00 | NUR ---
PT UP TO TOILET, URINE SAMPLE COLLECTED AND TAKEN TO LAB. DENIES ANY NEEDS AT THIS TIME. BED LOW, CALL LIGHT IN REACH, RAILS UP X 2. WILL CONTINUE TO MONITOR.
[2019-02-15 02:17] LABS: APPEARANCE CLEAR (CLEAR); BILIRUBIN NEGATIVE (NEGATIVE); COLOR YELLOW (YELLOW); GLUCOSE NEGATIVE (NEGATIVE); KETONE NEGATIVE (NEGATIVE); NITRITE NEGATIVE (NEGATIVE); PROTEIN NEGATIVE (NEGATIVE); SPECIFIC GRAVITY 1.005 (1.005-1.020); UROBILINOGEN NORMAL (NORMAL)
[2019-02-15 05:04] VITALS: BP 110/70
[2019-02-15 05:15] LABS: BASOPHILS 0.3 % (0-2); EOSINOPHILS 0.4 % (0-7); HEMATOCRIT 30.1 % (36.0-48.0); HEMOGLOBIN 9.8 g/dL (12-16); IMMATURE GRANULOCYTES 0.3 % (0-5); LYMPHOCYTES 16.3 % (15-50); MCH 28.7 pg (26.0-34.0); MCHC 32.6 g/dL (31.0-37.0); MONOCYTES 11.7 % (2-11); PLATELET COUNT 284 10x3/uL (130-400); RBC 3.42 10x6/uL (4.00-5.40); RDW 14.4 % (11.5-14.5)
[2019-02-15 05:20] LABS: WBC 7.8 10x3/uL (4.8-10.8)
[2019-02-15 05:33] LABS: ALBUMIN 2.9 g/dL (3.4-5.0); ANION GAP 10.6 mmol/L (8-16); BILIRUBIN - TOTAL 0.2 mg/dL (0.2-1.3); CALCIUM 8.6 mg/dL (8.5-10.1); CARBON DIOXIDE 28.6 mmol/L (21.0-32.0); CREATININE - SERUM 0.9 mg/dL (0.6-1.3); POTASSIUM - SERUM 4.2 mmol/L (3.5-5.1); PROTEIN - SERUM 5.9 g/dL (6.4-8.2)
--- NOTE | 2019-02-15 07:49 | NUR ---
ALERT AND ORIENTED. LUNGS CLEAR BILATERALLY IN ALL GARCIA. HEART SOUNDS S1 AND S2 HEARD IN ALL GARCIA. BOWEL SOUNDS ACTIVE X 4. LETICIA WRAP TO LEFT KNEE. CPM ON. SKIN INTACT WITHOUT REDNESS. IV TO RFA SL PATENT WITHOUT REDNESS. DENIES PAIN. DENIES NEEDS. BED LOW. FALL PRECAUTIONS IN PLACE. CALL CHAHAL AND PERSONAL ITEMS IN REACH. WILL CONTINUE TO MONITOR.
[2019-02-15] MEDS ORDERED: LOW DOSE ASPIRI81 M1 PO (08:27)
[2019-02-15] MEDS ORDERED: KEFLEX500 MG PO (08:27)
[2019-02-15] MEDS ORDERED: VISTARIL50 MG PO (08:27)
[2019-02-15] MEDS ORDERED: OXYCODONE HCL5 M1 PO (08:27)
[2019-02-15 09:37] VITALS: BP 122/65
--- NOTE | 2019-02-15 10:19 | NUR ---
DRSG TO LEFT KNEE CHANGED PER ORDER. EXTRA DRSGS AND LETICIA WRAP PROVIDED TO PATIETN BY DR GIBSON. STATES DOES NOT NEED ANYTHING ELSE. WILL DISCHARGE WHEN PAPERWORK READY.
--- NOTE | 2019-02-15 11:26 | NUR ---
SITTING IN CHAIR AT BEDSIDE. DENIES PAIN. DENIES NEEDS. WILL CONTINUE TO MONITOR.
--- NOTE | 2019-02-15 12:16 | MORECARE ---
CASE MANAGEMENT DISCHARGE SUMMARY PATIENT: PEGGY BUCHANAN UNIT: [id number] ADM DATE: 02/13/19 AGE: 53 : 67 SEX: F ROOM/BED: D.2211 AUTHOR: TRESSA MITCHELL PHYSICIAN: REFERRING PHYSICIAN: ANITA GIBSON DO DATE OF SERVICE: 02/15/19 Discharge Plan Patient Name: PEGGY BUCHANAN Facility: [facility]:[place] : 1965 Planned Disposition: Home or Self Care Anticipated Discharge Date: Discharge Date: Expected LOS: Initial Reviewer: [email or web address] Initial Review Date: 02/13/2019 Generated: 02/15/19 1:15 pm DCPIA - Discharge Planning Initial Assessment Updated by [email or web address]: Malini Darnell on 02/15/19 12:14 pm * Is the patient Alert and Oriented? Yes * How many steps to enter\exit or inside your home? * PCP [facility] * Pharmacy [facility] * Preadmission Environment Home with Family * ADLs Independent * Equipment Bedside Commode Shower Chair Walker * Other Equipment CPM ICE MACHINE * List name and contact numbers for known caregivers / representatives who currently or will assist patient after discharge: DANNY BUCHANAN [phone] * Verbal permission to speak to the caregivers and representatives has been obtained from the patient. N/A * Community resources currently utilized None * Additional services required to return to the preadmission environment? Yes * Can the patient safely return to the preadmission environment? Yes * Has this patient been hospitalized within the prior 30 days at any hospital? No External Providers External Provider: [facility] PT Next Contact Date: Service Request Date: Service Type: Resolution: Reviewer: Comments: Patient Name: PEGGY BUCHANAN Page 05955 at 1216 All edits/amendments must be made on the electronic document DICTATION DATE: 02/15/19 1215 BIG DATA SOFTWARE ENGINEER: BILL 02/15/19 1215 RPT#: [id number] DC DATE: STATUS: ADM IN [place] [id number] [place] [id number] END OF REPORT
--- NOTE | 2019-02-15 12:22 | NUR ---
DISCHARGE EDUCATION PROVIDED BOTH WRITTEN AND VERBAL. VERBALIZED UNDERSTANDING. DENIES FURTHER QUESTIONS. REQUESTED AND GIVEN PRN OXYCODONE PRIOR TO DISCHARGE. DENIES FURTHER NEEDS. IV REMOVED FROM RFA WITH TIP INTACT. PATIENT DISCHARGED HOME WITH WITH ALL BELONGINGS.
--- NOTE | 2019-02-15 12:22 | MORECARE ---
CASE MANAGEMENT DISCHARGE SUMMARY PATIENT: PEGGY BUCHANAN UNIT: [id number] ADM DATE: 02/13/19 AGE: 53 : 67 SEX: F ROOM/BED: D.2211 AUTHOR: TRESSA MITCHELL PHYSICIAN: REFERRING PHYSICIAN: ANITA GIBSON DO DATE OF SERVICE: 02/15/19 Discharge Plan Patient Name: PEGGY BUCHANAN Facility: [facility]:[place] : 1965 Planned Disposition: Home or Self Care Anticipated Discharge Date: Discharge Date: Expected LOS: Initial Reviewer: [id number] Initial Review Date: 02/13/2019 Generated: 02/15/19 1:22 pm Comments DCP- Discharge Planning Updated by [email or web address]: Malini Darnell on 02/15/19 11:[address] Patient Name: PEGGY BUCHANAN Admission Status: Elective Accout number: [id number] Admission Date: 02-13-2019 : 1965 Admission Diagnosis:UNILATERAL PRIMARY OSTEOARTHRITIS, LEFT Attending: ANITA GIBSON Current LOS: 2 Anticipated DC Date: Planned Disposition: Home or Self Care Primary Insurance: [employer] [facility] Discharge Planning Comments: CM met with patient to complete initial dc planning assessment. CM educated patient on the CM role and verbal consent given by patient to complete assessment. Patient lives at home with her where she is independent with her care. At discharge patient plans to return home and feels this is a safe discharge. Her will be her cdl driver home. CM discussed availability of home health, rehab services, and medical equipment. Her DME has been delivered to her home and was set up by Dr Gibson's office. She has a walker, BSC, CPM, and ice machine. She wants OP PT with [facility]. I have set her first appointment for TuesdayFeb 19 at 2:00. I spoke with Rebekah and faxed over order. The patient will also get a copy of her OP PT order in her DC pack. Patient denied known discharge needs at this time. CM will continue to follow and will assist as needed with dc plans/needs. Point Of Care Technician: Malini Darnell DCPIA - Discharge Planning Initial Assessment Updated by [email or web address]: Malini Darnell on 02/15/19 12:14 pm * Is the patient Alert and Oriented? Yes * How many steps to enter\exit or inside your home? * PCP [facility] * Pharmacy [facility] * Preadmission Environment Home with Family * ADLs Independent * Equipment Bedside Commode Shower Chair Walker * Other Equipment CPM ICE MACHINE * List name and contact numbers for known caregivers / representatives who currently or will assist patient after discharge: DANNY BUCHANAN [phone] * Verbal permission to speak to the caregivers and representatives has been obtained from the patient. N/A * Community resources currently utilized None * Additional services required to return to the preadmission environment? Yes * Can the patient safely return to the preadmission environment? Yes * Has this patient been hospitalized within the prior 30 days at any hospital? No Last DP export: 02/15/19 11:15 am Patient Name: PEGGY BUCHANAN Page 55722 at 1222 All edits/amendments must be made on the electronic document DICTATION DATE: 02/15/19 1222 HUMAN PROJECTILE: BILL 02/15/19 1222 RPT#: [id number] DC DATE: STATUS: ADM IN [facility] [address] [place] [address] END OF REPORT
--- NOTE | 2019-02-16 07:26 | MORECARE ---
CASE MANAGEMENT DISCHARGE SUMMARY PATIENT: PEGGY BUCHANAN UNIT: [id number] ADM DATE: 02/13/19 AGE: 53 : 67 SEX: F ROOM/BED: D.2211 AUTHOR: TRESSA MITCHELL PHYSICIAN: REFERRING PHYSICIAN: ANITA GIBSON DO DATE OF SERVICE: 02/16/19 Discharge Plan Patient Name: PEGGY BUCHANAN Facility: [facility]:[place] : 1965 Planned Disposition: Home or Self Care Anticipated Discharge Date: Discharge Date: 02/15/2019 Expected LOS: 0 Initial Reviewer: [email or web address] Initial Review Date: 02/13/2019 Generated: 02/16/19 8:26 am Comments DCP- Discharge Planning Updated by [email or web address]: Malini Darnell on 02/15/19 11:[address] Patient Name: PEGGY BUCHANAN Admission Status: Elective Accout number: [id number] Admission Date: 02-13-2019 : 1965 Admission Diagnosis:UNILATERAL PRIMARY OSTEOARTHRITIS, LEFT Attending: ANITA GIBSON Current LOS: 2 Anticipated DC Date: Planned Disposition: Home or Self Care Primary Insurance: [employer] [facility] Discharge Planning Comments: CM met with patient to complete initial dc planning assessment. CM educated patient on the CM role and verbal consent given by patient to complete assessment. Patient lives at home with her where she is independent with her care. At discharge patient plans to return home and feels this is a safe discharge. Her will be her tour bus driver/guide home. CM discussed availability of home health, rehab services, and medical equipment. Her DME has been delivered to her home and was set up by Dr Gibson's office. She has a walker, BSC, CPM, and ice machine. She wants OP PT with [facility]. I have set her first appointment for TuesdayFeb 19 at 2:00. I spoke with Rebekah and faxed over order. The patient will also get a copy of her OP PT order in her DC pack. Patient denied known discharge needs at this time. CM will continue to follow and will assist as needed with dc plans/needs. Geological Aide: Malini Darnell DCPIA - Discharge Planning Initial Assessment Updated by [id number]: Malini Darnell on 02/15/19 12:14 pm * Is the patient Alert and Oriented? Yes * How many steps to enter\exit or inside your home? * PCP GREG * Pharmacy [facility] * Preadmission Environment Home with Family * ADLs Independent * Equipment Bedside Commode Shower Chair Walker * Other Equipment CPM ICE MACHINE * List name and contact numbers for known caregivers / representatives who currently or will assist patient after discharge: DANNY BUCHANAN [phone] * Verbal permission to speak to the caregivers and representatives has been obtained from the patient. N/A * Community resources currently utilized None * Additional services required to return to the preadmission environment? Yes * Can the patient safely return to the preadmission environment? Yes * Has this patient been hospitalized within the prior 30 days at any hospital? No Last DP export: 02/15/19 11:22 am Patient Name: PEGGY BUCHANAN Page 21650 at 0726 All edits/amendments must be made on the electronic document DICTATION DATE: 02/16/19725 PUMP ROOM OPERATOR: BILL 02/16/19725 RPT#: [id number] DC DATE:02/15/19 STATUS: DIS IN [facility] [address] [place] [address] END OF REPORT
--- NOTE | 2019-02-27 10:37 | OP ---
PATIENT NAME: PEGGY SHAY MEDICAL RECORD: [id number] :67 LOCATION:D.MS [id number] ADMISSION DATE:02/13/19 SURGEON: STEVEN GIBSON DO DATE OF OPERATION: 02/13/2019 PROCEDURE PERFORMED: Left total knee arthroplasty. PREOPERATIVE DIAGNOSIS: Left knee osteoarthritis. POSTOPERATIVE DIAGNOSIS: Left knee osteoarthritis. INDICATIONS: Ms. Shay is a 53-year-old female who had a right knee replaced in August. She had had the left knee problems before then and has been wanting to have her left knee done, she was finally ready to have it done. She is tired of affecting her activities of daily living. She has tried all manner of nonoperative treatment and was aware of the risks including infection, bleeding, damage to nerves and vessels, need for further surgery, fracture, bleeding, blood clots, and even and she signed the consent. SURGEON: Steven Gibson DO I was assisted by Carl Hughes, advanced nurse practitioner. DESCRIPTION OF PROCEDURE: The patient was given a block of anesthesia in the preoperative area and taken to the operative suite, laid in supine position, given general anesthetic. Left lower extremity was prepped and draped in sterile fashion. Timeout was performed. Everyone was in agreeance with the correct the side, site, patient and procedure. The patient was given 80 mg of gentamicin and a gram of Ancef preoperatively, and a gram of TXA. The left lower extremity was then marked out and covered with a clear non-Ioban wrap and then the incision began with a 10-blade scalpel down the capsule. Capsule was cleaned off and medial parapatellar approach was used through the capsule with a fresh 10-blade scalpel. Any bleeding was coagulated with Aquamantys. The patella was then everted and milled down, part of the fat pad was removed. The femur was then exposed. The distal femur was entered and the canal and the distal femur was cut. Once this femur was cut, the tibia was exposed and the proximal tibia was cut and the bone was removed and the menisci using lamina bisque finisher, a pituitary and Bovie. Any bleeding was coagulated with Aquamantys at that time too. A 10 extension block was then fit very well. Knee was then flexed up and the femur was sized to be 65. Lamonte wing was used on the cutting block to ensure there was no notching. A 4-in-1 cutting block was then used to cut the femur. Once the femur was cut, the bone was removed and the trial was placed. Tibial tray was floated in and ranged and then rotation was marked. The lug holes were drilled on the femur and then on the patella for a 31 patella. The tibia was then exposed and sized to be a 67 cruciate. This was drilled and punched and then extra holes were put in the proximal tibia for cement. Cement was then mixed and placed on the tibia component and in the tibia. This was then impacted into place. Excess cement was removed. The femur was then impacted on and poly was put in between them and brought to extension. Any excess cement was removed at that time. The patella was then cemented in the holes and in all the patellar prosthesis, squeezed and held into place. Excess cement was removed. The knee was thoroughly irrigated and cement dried. Once cement was dried, we trialed the 10 and a 12, 12 poly fit very well and was stable in extension and flexion. This 12 deep dish poly was then put in and anterior stabilized E poly and locking mechanism was placed into the tibia. OPERATIVE REPORT [id number] CHANEL,PEGGYGay CASTILLO Once that was completed, the knee was irrigated again and tobramycin and vancomycin powder placed in the wound and the capsule as well as a Surgicel powder. The capsule was then closed with #2 Ethibond in hyxebx-sn-ujist fashion, the skin with 2-0 Vicryl in an inverted interrupted fashion by Alcides Hughes APRN. ZipLine was placed on the knee. Adaptic, 4 x 4s, ABD, Webril, Zack wrap, NATALIE stocking were placed on the knee. She was then awakened and taken to recovery in stable condition. Blood loss was 200 mL. COMPLICATIONS: None. TRANSINT:[id number] Voice Confirmation ID: [id number] DOCUMENT ID: [id number] 02/27/2019 Edited for marguerite Hughes. STEVEN GIBSON DO at 1037 CC: [id number] DICTATION DATE: 02/13/19901 CARD STRIPPER: 02/13/19 1154 DIS IN 02/15/19 [facility] [address] [place] [address]
== END 2019-02-15 12:51 | disposition home or self-care (01) | DRG 470 ==
LOC: D.MS 02-13 05:10 → D.SDCHOLD 02-13 05:10 → D.MS 02-13 09:18
PROVIDERS: Emergency Medicine; ADMIT Orthopaedic Surgery; ATTEND Orthopaedic Surgery
PROC: 0SRD0J9 Replacement of Left Knee Joint with Synthetic Substitute, Cemented, Open Approach (ICD-10-PCS; principal; 2019-02-13 07:00)
DX: M17.12 Unilateral primary osteoarthritis, left knee (principal); D62 Acute posthemorrhagic anemia; I10 Essential (primary) hypertension; I49.9 Cardiac arrhythmia, unspecified; M54.9 Dorsalgia, unspecified; G47.00 Insomnia, unspecified; G43.909 Migraine, unspecified, not intractable, without status migrainosus

== ENCOUNTER → 2019-05-22 08:29 | Outpatient (CLI) | payer BC ==
[2019-02-13 15:34] VITALS: BMI 32.3
[~2019-05-22 08:29] MED LIST changes: +LOW DOSE ASPIRI81 M1 PO; +NORVASC2.5 MG PO; +TRAZODONE HCL150 MG PO
== END | disposition home or self-care (01) ==
LOC: D.MRI 08:29
PROVIDERS: ATTEND Orthopaedic Surgery
DX: S53.31XA Traumatic rupture of right ulnar collateral ligament, initial encounter (principal)

== ENCOUNTER 2019-05-30 08:14 | Day surgery (SDC) | payer BC ==
[~2019-05-30] VITALS: Ht 167.6 cm; Wt 90.7 kg
[2019-05-30 08:59] LABS: HEMATOCRIT 40.6 % (36.0-48.0); MCH 28.6 pg (26.0-34.0); MCV 89.2 fL (80.0-100.0); MEAN PLATELET VOLUME 8.6 fL (7.4-10.4); RBC 4.55 10x6/uL (4.00-5.40); RDW 13.7 % (11.5-14.5); WBC 4.1 10x3/uL (4.8-10.8)
[2019-05-30 09:54] VITALS: BP 110/68; Ht 167.6 cm; Wt 90.7 kg
[2019-05-30] MEDS ORDERED: HYDROCODON-ACE1 EA10 PO (13:12)
--- NOTE | 2019-05-30 15:34 | OP ---
PATIENT NAME: PEGGY SHAY MEDICAL RECORD: [id number] :67 LOCATION:[facility] ADMISSION DATE: SURGEON: STEVEN GIBSON DO DATE OF OPERATION: 05/30/2019 PROCEDURE PERFORMED: Right thumb UCL repair. PREOPERATIVE DIAGNOSIS: Right thumb UCL rupture. POSTOPERATIVE DIAGNOSIS: Right thumb UCL rupture. INDICATIONS: Ms. Shay is a 53-year-old female who was carrying groceries and injured her thumb. It was very lax and she said that it was quite painful and at the same duration she had a UCL rupture. I got an MRI to confirm and did indeed show the ulnar collateral ligament ruptured off the proximal phalanx of the thumb on the right hand. I informed her of the risks including infection, bleeding, damage to nerves including the ulnar nerve on that side of the thumb, need for further surgery, continued pain and re-rupture. She is aware of those risks and signed the consent. SURGEON: Steven Gibson DO DESCRIPTION OF PROCEDURE: The patient was taken to the operative suite, laid in supine position. She was given a block in the preoperative area by anesthesia and 2 grams of Ancef. She was also given TIVA. The right upper extremity was then prepped and draped in sterile fashion. Timeout was performed. Everyone was in agreeance with the correct side, site, patient and procedure. The right upper extremity was exsanguinated with an Esmarch. Tourniquet was inflated to 250 mmHg, it was up for 23 minutes total. Careful dissection was made down through the skin on the ulnar side of the thumb to the adductor aponeurosis. The nerve was noted and pulled out of the way. The adductor aponeurosis was incised and right below was the torn UCL. We then used a 1.0 mini JuggerKnot suture anchor and put in the proximal phalanx, the first 2 pulled out, a third one was put in a different spot and held. The UCL was then repaired in horizontal mattress fashion and tied down and also secured to the capsule. This had a very good repair. There was no laxity seen with stress. The adductor aponeurosis was repaired at that time with the leftover suture, 2-0 suture. The tourniquet was let down at that time and the skin was closed with 4-0 Monocryl in an interrupted fashion. Steri-Strips were placed on that. Adaptic, 4 x 4s, cast padding and then a thumb spica splint was placed on it and secured in place with an Zack wrap. She was awakened and taken to outpatient as the TIVA was turned off and taken to recovery in stable condition. BLOOD LOSS: Minimal. COMPLICATIONS: None. TRANSINT:[id number] Voice Confirmation ID: [id number] DOCUMENT ID: [id number] OPERATIVE REPORT [id number] PEGGY SHAY MICHAEL D, DO at 1534 CC: [id number] DICTATION DATE: 05/30/19 1317 ORACLE APPLICATION CONSULTANT: 05/30/19 1458 [id number] [place] [address]
== END 2019-05-30 14:40 | disposition home or self-care (01) ==
LOC: D.OPS 08:14
PROVIDERS: Anesthesiology; ATTEND Orthopaedic Surgery
DX: S53.31XA Traumatic rupture of right ulnar collateral ligament, initial encounter (principal); X58.XXXA Exposure to other specified factors, initial encounter; Y93.9 Activity, unspecified; Y92.9 Unspecified place or not applicable

== ENCOUNTER → 2019-10-24 11:06 | Outpatient (CLI) | payer BC ==
[2019-05-30 09:54] VITALS: BMI 32.3
== END | disposition home or self-care (01) ==
LOC: D.MRI 11:06
PROVIDERS: ATTEND Orthopaedic Surgery
DX: M54.16 Radiculopathy, lumbar region (principal)

== ENCOUNTER → 2020-10-16 09:31 | Outpatient (CLI) | payer BC ==
[2019-05-30 09:54] VITALS: BMI 32.3
--- NOTE | 2020-10-15 16:44 | NUR ---
CONFIRMED PT APPT FOR 10/15/20 BLOOD THINNERS: NO ALLX: PCN, UNKNOWN PAIN MEDICATION, BETADINE ARRIVAL TIME: 0900
--- NOTE | 2020-10-16 10:45 | NUR ---
TIMEOUT PERFORMED AT 1022 USING NAME AND . PCN, BETADINE, STATINS, NO BLOODTHINNERS 12CC'S MRI COCKTAIL OF 20 ISOVUE, 20NS, ..16 GADOLINIUM
== END | disposition home or self-care (01) ==
LOC: D.RAD 09:31
PROVIDERS: ATTEND Orthopaedic Surgery
DX: S43.432A Superior glenoid labrum lesion of left shoulder, initial encounter (principal)

== ENCOUNTER 2020-11-12 08:32 | Day surgery (SDC) | payer BC ==
[~2020-11-12] VITALS: Ht 167.6 cm; Wt 88.5 kg
[~2020-11-12 08:32] MED LIST changes: +ALDACTONE25 MG PO; +PERCOCET 10-321 EAC1 PO
[2020-11-12 08:55] LABS: BASOPHILS 1.2 % (0-2); EOSINOPHILS 1.9 % (0-7); HEMATOCRIT 38.5 % (36.0-48.0); HEMOGLOBIN 12.6 g/dL (12-16); IMMATURE GRANULOCYTES 0.5 % (0-5); LYMPHOCYTE ABS# 1.13 10x3/uL (1.18-3.74); LYMPHOCYTES 26.7 % (15-50); MCH 28.8 pg (26.0-34.0); MCHC 32.7 g/dL (31.0-37.0); MCV 88.1 fL (80.0-100.0); MEAN PLATELET VOLUME 8.2 fL (7.4-10.4); MONOCYTES 11.1 % (2-11); NEUTROPHIL ABS# 2.48 10x3/uL (1.56-6.13); NEUTROPHILS 58.6 % (40-80); PLATELET COUNT 279 10x3/uL (130-400); RBC 4.37 10x6/uL (4.00-5.40); RDW 13.4 % (11.5-14.5); WBC 4.2 10x3/uL (4.8-10.8)
[2020-11-12 09:04] LABS: CALC OSMOLALITY 281 mosm/kg (275-300); CALCIUM 9.7 mg/dL (8.5-10.1); CARBON DIOXIDE 30.6 mmol/L (21.0-32.0); CHLORIDE - SERUM 105 mmol/L (98-107); CREATININE - SERUM 0.8 mg/dL (0.6-1.3); GLUCOSE 97 mg/dL (74-106); POTASSIUM - SERUM 4.3 mmol/L (3.5-5.1); SODIUM 141 mmol/L (136-145); UREA NITROGEN 14 mg/dL (7-18); eGFR NON AFRICAN AMERICAN 79 mL/min (90-120)
[2020-11-12 10:03] VITALS: BP 128/73; Ht 167.6 cm; Wt 88.5 kg
--- NOTE | 2020-11-12 14:55 | NUR ---
PT DISCHARGED VIA W/C, ACCOMPANIED BY THIS NURSE, TO POV WITH SPOUSE DRIVING. ALL BELONGINGS WITH PT/SPOUSE.
--- NOTE | 2020-11-12 21:24 | OP ---
PATIENT NAME: PEGGY SHAY MEDICAL RECORD: [id number] :67 LOCATION:[facility] ADMISSION DATE: SURGEON: STEVEN GIBSON DO DATE OF OPERATION: 11/12/2020 PROCEDURE PERFORMED: Left shoulder arthroscopy with subacromial decompression, distal clavicle excision, labral debridement, biceps tenodesis and rotator cuff repair using Regeneten implant. PREOPERATIVE DIAGNOSES: Left shoulder partial thickness rotator cuff tear, SLAP tear, acromioclavicular joint arthritis and subacromial impingement. POSTOPERATIVE DIAGNOSES: Left shoulder partial thickness rotator cuff tear, SLAP tear, acromioclavicular joint arthritis and subacromial impingement. INDICATIONS: Ms. Shay is a 55-year-old female who has had left shoulder pain for quite some time. She has tried injection, all manner of nonoperative treatment. She got an MRI showing the above findings. She wanted something done surgically. She is aware of the risk of this including infection, bleeding, damage to nerves or vessels, need for further surgery, continued pain, arthrofibrosis of the shoulder, frozen shoulder syndrome, need for further surgery, failure of implants, retear of the rotator cuff tendon and damage to nerves in the area and even and she signed the consent. SURGEON: Steven Gibson DO DESCRIPTION OF PROCEDURE: The patient was taken to the operative suite, given a block by anesthesia in the preoperative area, laid in the right lateral decubitus position with the left shoulder up. She was sedated and LMA was placed. The left shoulder was then prepped and draped in sterile fashion. Timeout was performed. Everyone was in agreement with the correct site, side, patient, and procedure. She was given 900 mg of clindamycin preoperatively. I then injected through the posterior portal 18-gauge spinal needle into the shoulder joint 60 mL normal saline and then made the posterior portal with an 11-blade scalpel. Trocar was entered in the joint. I then entered the scope into the joint and turned the water on and then established an anterior portal with 15-guage spinal needle and 11-blade scalpel, trocar entered, and I then noted the SLAP tear. She had a large SLAP tear which went up into the biceps tendon. I brought a burner into the biceps tenotomy. At that point, a labral debridement. I then looked at the subscapularis tendon was in good repair, but the supraspinatus was not. She had a partial thickness tearing on the articular side of it, back almost full width rather back to the infraspinatus. I then inspected the rest of the joint and no loose bodies in the inferior gutter and very little if any chondromalacia. We then went to the subacromial space, established a lateral portal with 18-guage spinal needle and 11-blade scalpel, brought in a shaver and bur and did a subacromial decompression with acromioplasty and distal clavicle excision through the anterior portal with a shaver, opened up the AC joint, approximately 7 mm. I then went back to the joint, marked the tear with an 18-gauge spinal needle and then reprepped the shoulder and prepared for opening and then opened after prep and dried and then with [place] carefully dissected down to the tear. I then put on the Regeneten implant and stapled it into place. We went to the anterior humerus and made a small incision and dissected along the biceps tendon. I carefully dissected out and then put a unicortical hole in the humerus and impacted in the 2.9 JuggerLoc biceps looped stitch and then looped the tendon through it and OPERATIVE REPORT [id number] SUIT,PEGGY CASTILLO cinched it down to the humerus after pulling tension on it, cut the loop stitch and went back through the tendon twice and tied it down and cut the excess tendon and suture. I then irrigated the site. Lizandro Logan, certified endoscopy technician then closed the open sites with 2-0 Vicryl in inverted interrupted fashion, 4-0 Monocryl on the skin and 4-0 Monocryl in inverted interrupted fashion and portal sites, placed Dermabond glue on all of them. She was then dressed with Telfa and Tegaderm. She was awakened, put in a sling and taken to recovery in stable condition. ESTIMATED BLOOD LOSS: Minimal. COMPLICATION: None. TRANSINT:[id number] Voice Confirmation ID: [id number] DOCUMENT ID: [id number] STEVEN GIBSON DO at 6444 CC: [id number] DICTATION DATE: 11/12/20 1312 FAMILY SERVICES MANAGER: 11/12/20 2104 DEP SDC 11/12/20 [facility] [address] [place] [address]
== END 2020-11-12 14:55 | disposition home or self-care (01) ==
LOC: D.OPS 08:32
PROVIDERS: Anesthesiology; ATTEND Orthopaedic Surgery
DX: M75.122 Complete rotator cuff tear or rupture of left shoulder, not specified as traumatic (principal); M75.42 Impingement syndrome of left shoulder; M13.812 Other specified arthritis, left shoulder; S43.432A Superior glenoid labrum lesion of left shoulder, initial encounter; X58.XXXA Exposure to other specified factors, initial encounter